=== PATIENT | male | born 1985 | race Caucasian/White ===

== ENCOUNTER → 2019-05-10 | Outpatient (CLI) | payer BC | LOC: ULTRA 10:32 | DX: N28.1 Cyst of kidney, acquired (principal) ==

== ENCOUNTER → 2019-05-11 | Outpatient (CLI) | payer OTHER | LOC: CAT 16:59 | DX: R16.1 Splenomegaly, not elsewhere classified (principal); N28.1 Cyst of kidney, acquired; R94.5 Abnormal results of liver function studies ==